=== PATIENT | female | born 1950 | race Caucasian/White ===

== ENCOUNTER → 2017-06-17 | Outpatient (CLI) | payer MEDICARE ==
--- NOTE | 2017-06-18 14:13 | MM ---
Reason for exam: screening (asymptomatic). Last mammogram was performed 1 year and 1 month ago. History: Patient is postmenopausal and had first child at age 35. Took estrogen for 6 months. Physical Findings: A clinical breast exam by your physician is recommended on an annual basis and results should be correlated with mammographic findings. MG 3D Screening Mammo W/Cad Bilateral CC and MLO view(s) were taken. Prior study comparison: May 08, 2016, bilateral MG screening mammo w CAD. August 04, 2014, mammogram, performed at [facility]. July 20, 2013, mammogram, performed at [facility]. The breast tissue is heterogeneously dense. This may lower the sensitivity of mammography. No suspicious abnormality. No significant changes when compared with prior studies. ASSESSMENT: Negative, BI-RAD 1 RECOMMENDATION: Routine screening mammogram of both breasts in 1 year.
== END | disposition home or self-care (01) ==
LOC: RADMAMWWP 08:27
PROVIDERS: ATTEND Obstetrics & Gynecology
DX: Z12.31 Encounter for screening mammogram for malignant neoplasm of breast (principal)
CPT/HCPCS: 77063; G0202

== ENCOUNTER → 2019-05-06 | Outpatient (CLI) | payer MEDICARE ==
[2019-05-06 15:01] LABS: INR 0.9 (<1.2); Prothrombin Time 9.7 sec (9.0-12.0)
== END | disposition home or self-care (01) ==
LOC: LABWHC1 13:40
PROVIDERS: ATTEND Orthopaedic Surgery Adult Reconstructive Orthopaedic Surgery
DX: Z01.812 Encounter for preprocedural laboratory examination (principal); M25.561 Pain in right knee; M17.11 Unilateral primary osteoarthritis, right knee
CPT/HCPCS: 36415; 85610; 87070

== ENCOUNTER → 2020-01-24 | Outpatient (CLI) | payer MEDICARE ==
--- NOTE | 2020-01-25 08:25 | MM ---
Reason for exam: screening (asymptomatic). Last mammogram was performed 1 year and 7 months ago. History: Patient is postmenopausal and had first child at age 35. Took estrogen for 6 months. Physical Findings: A clinical breast exam by your physician is recommended on an annual basis and results should be correlated with mammographic findings. MG 3D Screening Mammo W/Cad Bilateral CC and MLO view(s) were taken. Prior study comparison: June 25, 2018, bilateral MG 3d screening mammo w/cad. June 17, 2017, bilateral MG 3d screening mammo w/cad. The breast tissue is heterogeneously dense. This may lower the sensitivity of mammography. There is no discrete abnormality. No significant changes when compared with prior studies. ASSESSMENT: Negative, BI-RAD 1 RECOMMENDATION: Routine screening mammogram of both breasts in 1 year.
== END | disposition home or self-care (01) ==
LOC: RADMAMWWP 10:35
PROVIDERS: ATTEND Obstetrics & Gynecology
DX: Z12.31 Encounter for screening mammogram for malignant neoplasm of breast (principal)
CPT/HCPCS: 77063; 77067

== ENCOUNTER → 2020-03-01 | Outpatient (CLI) | payer MEDICARE ==
--- NOTE | 2020-03-01 16:35 | BD ---
EXAMINATION TYPE: Axial Bone Density DATE OF EXAM: 03/01/2020 COMPARISON: NONE CLINICAL HISTORY: 69 YR OLD FEMALE.....ICD-10 CODE: N95.1 POST MENOPAUSAL Height: 68 Weight: 237 FRAX RISK QUESTIONS: 3. Menopause before 45: AT 46 YRS OLD RISK FACTORS HISTORY OF: Surgery to RT HIP REPLACED JANUARY 2017 Postmenopausal woman: YES AT AGE 46 Take estrogen and/or progesterone medications: TOOK IN PAST FOR ONLY 6 MOS Hyperparathyroidism: NO Adrenal Insufficiency: NO MEDICATIONS: Thyroid Medications: YES, SYNTHROID, FOR ABOUT 40 YRS Additional Medications: LEXAPRO, METFORMIN, STATIN FOR CHOLESTEROL, VIT D AND CALCIUM Additional History: OSTEOARTHRITIS, RT KNEE REPLACEMENT 2018, DIABETIC CHOLESTEROL EXAM MEASUREMENTS: Bone mineral densitometry was performed using the [employer] System. Bone mineral density as measured about the Lumbar spine is: ----- L1-L4(G/cm2): 1.580 T Score Values are as follows: ----- L: 2.2 ----- L2: 2.0 ----- L3: 4.3 ----- L4: 4.2 ----- L1-L4: 3.3 Bone mineral density FIRST BONE DENSITY STUDY AT [facility] Bone mineral density about the L hip (g/cm2): 1.284 T Score values are as follows: -----L Neck: 1.3 -----L Total: 2.2 Bone mineral density FIRST BONE DENSITY STUDY AT [facility] FRAX%s: THERE IS A 5.2% CHANCE FOR A MAJOR OSTEOPOROTIC FX AND A 0.1% FOR HIP.....PROBABILITY FOR FX IN 10 YRS TIME IMPRESSION: Normal (Values between +1 and -1 indicate normal bone mass). Consider repeating this study in 5 year s or sooner if there is some new clinical indication. NOTE: T-SCORE=SD OF THE YOUNG ADULT MEAN.
== END | disposition home or self-care (01) ==
LOC: RADBDWWP 13:19
PROVIDERS: ATTEND Obstetrics & Gynecology
DX: N95.1 Menopausal and female climacteric states (principal)
CPT/HCPCS: 77080

== ENCOUNTER 2020-03-16 15:39 | Observation (INO) | payer MEDICARE ==
--- NOTE | 2020-03-16 16:16 | ED ---
SOB HPI - General Chief Complaint: Shortness of Breath Stated Complaint: SOB, poss blood clot Time Seen by Provider: 03/16/20 15:53 Source: patient, RN notes reviewed Mode of arrival: ambulatory Limitations: no limitations - History of Present Illness Initial Comments: 69-year-old female presents emergency Department chief complaint of exertional dyspnea. Patient states she woke up this morning felt extremely tired. No she states that she slept well with her CPAP. Patient states that she got up to walk up to her breakfast table which was a short distance and states she became very diaphoretic and felt winded. Patient states that she's had recurrent symptoms of this about the day. She has meant that she is a type II diabetic but sugar was 159 this morning. Patient states she only takes metformin. Patient denies fever or chills. Patient states she's had no prior cardiac disease she's never had an echo. Patient has had stresses the past which have been normal. She has no complaints of chest pain at this time. Patient has localized abdominal pain, leg pain, leg swelling patient called PCP who recommended her to come emergency Department to rule out PE. - Related Data Home Medications Medication Instructions Recorded Confirmed Atorvastatin Calcium [Lipitor] 20 mg PO HS 03/16/20 03/16/20 Escitalopram [Lexapro] 10 mg PO DAILY 03/16/20 03/16/20 Levothyroxine Sodium 100 mcg PO SUTUTHSA 03/16/20 03/16/20 Levothyroxine Sodium 125 mcg PO MOWEFR 03/16/20 03/16/20 metFORMIN HCL [metFORMIN HCL ER] 1,000 mg PO W/SUPPER 03/16/20 03/16/20 Allergies Allergy/AdvReac Type Severity Reaction Status Date / Time ciprofloxacin [From Cipro] Allergy Unknown Verified 03/16/20 17:40 mefenamic acid [From Ponstel] Allergy Unknown Verified 03/16/20 17:40 Sulfa (Sulfonamide Allergy Rash/Hives Verified 03/16/20 17:40 Antibiotics) Review of Systems ROS Statement: Those systems with pertinent positive or pertinent negative responses have been documented in the HPI. ROS Other: All systems not noted in ROS Statement are negative. Past Medical History Past Medical History: Diabetes Mellitus, Hyperlipidemia, Thyroid Disorder History of Any Multi-Drug Resistant Organisms: None Reported Past Surgical History: Joint Replacement, Uterine Ablation Additional Past Surgical History / Comment(s): eyelid Past Psychological History: Anxiety Smoking Status: Former smoker Past Alcohol Use History: Daily Past Drug Use History: None Reported General Exam Limitations: no limitations General appearance: alert, in no apparent distress Head exam: Present: atraumatic, normocephalic, normal inspection Eye exam: Present: normal appearance, PERRL, EOMI. Absent: scleral icterus, conjunctival injection, periorbital swelling ENT exam: Present: normal exam, normal oropharynx, mucous membranes moist Neck exam: Present: normal inspection. Absent: tenderness, meningismus, lymphadenopathy Respiratory exam: Present: normal lung sounds bilaterally. Absent: respiratory distress, wheezes, rales, rhonchi, stridor Cardiovascular Exam: Present: regular rate, normal rhythm, normal heart sounds. Absent: systolic murmur, diastolic murmur, rubs, gallop, clicks Extremities exam: Present: other. Absent: pedal edema, calf tenderness Neurological exam: Present: alert, oriented X3, CN II-XII intact Skin exam: Present: warm, dry, intact, normal color. Absent: rash Course Vital Signs 03/16/20 03/16/20 03/16/20 15:43 16:25 17:47 Temperature 98 F Pulse Rate 86 80 Respiratory 18 18 18 Rate Blood Pressure 127/82 124/78 O2 Sat by Pulse 95 100 Oximetry 03/16/20 18:27 Temperature 97.8 F Pulse Rate 65 Respiratory 18 Rate Blood Pressure 131/81 O2 Sat by Pulse 98 Oximetry Medical Decision Making - Medical Decision Making 69-year-old female presented for exertional dyspnea. Patient's had recurrent symptoms exertional dyspnea, diaphoresis and near syncope. Patient d-dimer is mildly elevated CT is negative. Patient will be admitted for echocardiogram, cardiology evaluation - Lab Data Result diagrams: 03/16/20 16:06 03/16/20 16:06 Lab Results 03/16/20 03/16/20 03/16/20 Range/Units 16:06 16:06 16:06 WBC 4.0 (3.8-10.6) k/uL RBC 4.11 (3.80-5.40) m/uL Hgb 13.0 (11.4-16.0) gm/dL Hct 37.8 (34.0-46.0) % MCV 91.9 (80.0-100.0) fL MCH 31.7 (25.0-35.0) pg MCHC 34.5 (31.0-37.0) g/dL RDW 13.7 (11.5-15.5) % Plt Count 205 (150-450) k/uL Neutrophils % 60 % Lymphocytes % 28 % Monocytes % 6 % Eosinophils % 3 % Basophils % 1 % Neutrophils # 2.4 (1.3-7.7) k/uL Lymphocytes # 1.1 (1.0-4.8) k/uL Monocytes # 0.3 (0-1.0) k/uL Eosinophils # 0.1 (0-0.7) k/uL Basophils # 0.0 (0-0.2) k/uL PT 9.6 (9.0-12.0) sec INR 0.9 (<1.2) APTT 22.7 (22.0-30.0) sec D-Dimer 0.65 H (<0.60) mg/L FEU Sodium 138 (137-145) mmol/L Potassium 3.7 (3.5-5.1) mmol/L Chloride 107 (98-107) mmol/L Carbon Dioxide 24 (22-30) mmol/L Anion Gap 7 mmol/L BUN 22 H (7-17) mg/dL Creatinine 0.60 (0.52-1.04) mg/dL Est GFR (CKD-EPI)AfAm >90 (>60 ml/min/1.73 sqM) Est GFR (CKD-EPI)NonAf >90 (>60 ml/min/1.73 sqM) Glucose 190 H (74-99) mg/dL Plasma Lactic Acid Jeffery (0.7-2.0) mmol/L Calcium 9.2 (8.4-10.2) mg/dL Magnesium 1.9 (1.6-2.3) mg/dL Total Bilirubin 0.8 (0.2-1.3) mg/dL AST 29 (14-36) U/L ALT 22 (4-34) U/L Alkaline Phosphatase 96 (38-126) U/L Troponin I (0.000-0.034) ng/mL Total Protein 6.7 (6.3-8.2) g/dL Albumin 4.2 (3.5-5.0) g/dL 03/16/20 03/16/20 Range/Units 16:06 16:06 WBC (3.8-10.6) k/uL RBC (3.80-5.40) m/uL Hgb (11.4-16.0) gm/dL Hct (34.0-46.0) % MCV (80.0-100.0) fL MCH (25.0-35.0) pg MCHC (31.0-37.0) g/dL RDW (11.5-15.5) % Plt Count (150-450) k/uL Neutrophils % % Lymphocytes % % Monocytes % % Eosinophils % % Basophils % % Neutrophils # (1.3-7.7) k/uL Lymphocytes # (1.0-4.8) k/uL Monocytes # (0-1.0) k/uL Eosinophils # (0-0.7) k/uL Basophils # (0-0.2) k/uL PT (9.0-12.0) sec INR (<1.2) APTT (22.0-30.0) sec D-Dimer (<0.60) mg/L FEU Sodium (137-145) mmol/L Potassium (3.5-5.1) mmol/L Chloride (98-107) mmol/L Carbon Dioxide (22-30) mmol/L Anion Gap mmol/L BUN (7-17) mg/dL Creatinine (0.52-1.04) mg/dL Est GFR (CKD-EPI)AfAm (>60 ml/min/1.73 sqM) Est GFR (CKD-EPI)NonAf (>60 ml/min/1.73 sqM) Glucose (74-99) mg/dL Plasma Lactic Acid Jeffery 1.6 (0.7-2.0) mmol/L Calcium (8.4-10.2) mg/dL Magnesium (1.6-2.3) mg/dL Total Bilirubin (0.2-1.3) mg/dL AST (14-36) U/L ALT (4-34) U/L Alkaline Phosphatase (38-126) U/L Troponin I <0.012 (0.000-0.034) ng/mL Total Protein (6.3-8.2) g/dL Albumin (3.5-5.0) g/dL - EKG Data -: EKG Interpreted by Me EKG Comments: EKG performed at 16:09 normal sinus rhythm rate of 84 UT 170 QRS 94 QT/QTC 418/493 Disposition Clinical Impression: Exertional dyspnea, Near syncope Disposition: ADMITTED IP TO THIS HOSP Condition: Fair Referrals: Prakash Batista MD [Primary Care Provider] - 1-2 days
[2020-03-16 16:30] LABS: Basophils % (A) 1 %; Eosinophils # (A) 0.1 k/uL (0-0.7); Eosinophils % (A) 3 %; HCT 37.8 % (34.0-46.0); Lymphocytes # (A) 1.1 k/uL (1.0-4.8); Lymphocytes % (A) 28 %; MCH 31.7 pg (25.0-35.0); MCHC 34.5 g/dL (31.0-37.0); MCV 91.9 fL (80.0-100.0); Mean Platelet Volume 7.2; Monocytes # (A) 0.3 k/uL (0-1.0); Monocytes % (A) 6 %; Neutrophils # (A) 2.4 k/uL (1.3-7.7); Neutrophils % (A) 60 %; Platelet Count 205 k/uL (150-450); RBC 4.11 m/uL (3.80-5.40); RDW 13.7 % (11.5-15.5)
[2020-03-16 16:39] LABS: ALT 22 U/L (4-34); AST 29 U/L (14-36); African American GFR (CKD) >90 (>60 ml/min/1.73 sqM); Albumin 4.2 g/dL (3.5-5.0); Alkaline Phosphatase 96 U/L (38-126); Anion Gap 7 mmol/L; Blood Urea Nitrogen 22 mg/dL (7-17); Calcium 9.2 mg/dL (8.4-10.2); Carbon Dioxide 24 mmol/L (22-30); Chloride 107 mmol/L (98-107); Glucose 190 mg/dL (74-99); Magnesium 1.9 mg/dL (1.6-2.3); Non-African American GFR(CKD) >90 (>60 ml/min/1.73 sqM); Potassium 3.7 mmol/L (3.5-5.1); Sodium 138 mmol/L (137-145); Total Bilirubin 0.8 mg/dL (0.2-1.3); Total Protein 6.7 g/dL (6.3-8.2)
--- NOTE | 2020-03-16 16:41 | XR ---
EXAMINATION TYPE: XR chest 2V DATE OF EXAM: 03/16/2020 COMPARISON: NONE HISTORY: Short of breath TECHNIQUE: 2 views FINDINGS: Heart is normal. Lungs are clear. Costophrenic angles are clear. There are no hilar masses. There are chest leads. Bony thorax is intact. IMPRESSION: No active cardiopulmonary disease.
[2020-03-16 16:47] LABS: INR 0.9 (<1.2); Partial Thromboplastin Time 22.7 sec (22.0-30.0); Prothrombin Time 9.6 sec (9.0-12.0)
[2020-03-16 17:12] LABS: D-Dimer 0.65 mg/L FEU (<0.60)
--- NOTE | 2020-03-16 18:39 | CT ---
EXAMINATION TYPE: CT chest angio for PE DATE OF EXAM: 03/16/2020 COMPARISON: None HISTORY: Dyspnea on exertion. CT DLP: 574.4 mGycm Automated exposure control for dose reduction was used. CONTRAST: Performed with IV Contrast, patient injected with 81ml mL of Isovue 370. There are 3-D post processed images. The lungs are clear of consolidation. There is no evidence of a pulmonary mass. There is no pleural e ffusion. There is no pericardial effusion. Thoracic aorta is intact. There is no aneurysm or dissection. There are no hilar masses. There is nor mal contrast opacification of the pulmonary arteries. There are no filling defects. I see no bony enmanuel tructive process. There is some spurring in the thoracic spine. Sternum is intact. There is small hia cristina hernia. IMPRESSION: No evidence of pulmonary embolism.
[2020-03-16] MEDS ORDERED: NALOXONE 0.4 MG/ML 1 ML VIAL IV PRN (18:49)
[2020-03-16] MEDS ORDERED: ONDANSETRON 4 MG/2 ML VIAL IVP PRN (18:49)
[2020-03-16] MEDS ORDERED: ACETAMINOPHEN TAB 325 MG TAB PO PRN (18:49)
[2020-03-16] MEDS ORDERED: TEMAZEPAM 15 MG CAP PO PRN (18:49)
[2020-03-16] MEDS ORDERED: ATORVASTATIN 20 MG TAB PO SCH (21:00)
[2020-03-17] MEDS ORDERED: LEVOTHYROXINE 125 MCG TAB PO SCH (06:30)
[2020-03-17 06:40] LABS: Glucose,Whole Blood 141 mg/dL (75-99)
[2020-03-17] MEDS ORDERED: ESCITALOPRAM 10 MG TAB PO SCH (09:00)
[2020-03-17 09:43] VITALS: RESP 16
[2020-03-17] MEDS ORDERED: REGADENOSON 0.4 MG/5 ML SYRINGE IV ONE (10:38)
[2020-03-17] MEDS ORDERED: AMINOPHYLLINE 500 MG/20 ML VIAL IV PRN (10:38)
[2020-03-17] MEDS ORDERED: CAFFEINE CITRATE 60 MG/3 ML VIAL IV PRN (10:38)
--- NOTE | 2020-03-17 10:38 | P.CRDCN ---
History of Present Illness Consult date: 03/17/20 Chief complaint: Shortness of breath History of present illness: This is a very pleasant 69-year-old female patient with diabetes and hypertensio n and dyslipidemia presented to the hospital complaining of shortness of breath. She was in her usual state of health yesterday when she woke up in the morning complaining of shortness of breath it was associated with sweating but no symptoms of chest pain or discomfort or dizziness or lightheadedness or syncope. She decided to come to the emergency department. She underwent a workup including d-dimer and that came in to be abnormal but subsequently CTA of the chest showed no PE. The EKG showed sinus rhythm without significant ST or T- wave abnormalities but nonspecific changes. 3 sets of cardiac enzymes came in to be unremarkable. The patient does have diabetes and hypertension and dys lipidemia as risk factors. She does not smoke. No significant or immediate family member was coronary artery disease. She is quite concerned about severe underlying coronary artery disease and also I am concerned about severe CAD giving her multiple risk factors and the presentation was shortness of breath which could be angina equivalent. Having said that I'm going to schedule the patient to undergo a stress test to rule out severe underlying coronary artery disease and also an echocardiogram was Doppler to establish LV function. Further recommendation to follow that Past Medical History Past Medical History: Diabetes Mellitus, Hyperlipidemia, Thyroid Disorder History of Any Multi-Drug Resistant Organisms: None Reported Past Surgical History: Joint Replacement, Uterine Ablation Additional Past Surgical History / Comment(s): eyelid Past Anesthesia/Blood Transfusion Reactions: No Reported Reaction Past Psychological History: Anxiety Smoking Status: Former smoker Past Alcohol Use History: Daily Past Drug Use History: None Reported Medications and Allergies Home Medications Medication Instructions Recorded Confirmed Type Atorvastatin Calcium [Lipitor] 20 mg PO HS 03/16/20 03/16/20 History Escitalopram [Lexapro] 10 mg PO DAILY 03/16/20 03/16/20 History Levothyroxine Sodium 100 mcg PO SUTUTHSA 03/16/20 03/16/20 History Levothyroxine Sodium 125 mcg PO MOWEFR 03/16/20 03/16/20 History metFORMIN HCL [metFORMIN HCL ER] 1,000 mg PO W/SUPPER 03/16/20 03/16/20 History Allergies Allergy/AdvReac Type Severity Reaction Status Date / Time ciprofloxacin [From Cipro] Allergy Unknown Verified 03/16/20 17:40 mefenamic acid [From Ponstel] Allergy Unknown Verified 03/16/20 17:40 Sulfa (Sulfonamide Allergy Rash/Hives Verified 03/16/20 17:40 Antibiotics) Physical Exam Vitals: Vital Signs Temp Pulse Pulse Resp BP BP Pulse Ox 03/17/20 09:00 98 F 78 16 133/84 96 03/17/20 03:00 97.7 F 63 130/80 96 03/16/20 21:39 97.8 F 72 138/78 97 03/16/20 20:18 97.4 F L 69 18 145/92 100 03/16/20 18:27 97.8 F 65 18 131/81 98 03/16/20 17:47 80 18 124/78 100 03/16/20 16:25 18 03/16/20 15:43 98 F 86 18 127/82 95 Intake and Output 03/16/20 03/17/20 03/17/20 22:59 06:59 14:59 Intake Total 300 150 Balance 300 150 Intake: Oral 300 150 Other: Voiding Method Toilet Toilet Weight 107.048 kg - Constitutional General appearance: no acute distress - Respiratory Respiratory: bilateral: CTA - Cardiovascular Rhythm: regular Heart sounds: normal: S1, S2 Results 03/16/20 16:06 03/16/20 16:06 Cardiac Enzymes 03/16/20 03/16/20 03/17/20 Range/Units 16:06 16:06 09:03 AST 29 (14-36) U/L Troponin I <0.012 <0.012 (0.000-0.034) ng/mL Coagulation 03/16/20 Range/Units 16:06 PT 9.6 (9.0-12.0) sec APTT 22.7 (22.0-30.0) sec CBC 03/16/20 Range/Units 16:06 WBC 4.0 (3.8-10.6) k/uL RBC 4.11 (3.80-5.40) m/uL Hgb 13.0 (11.4-16.0) gm/dL Hct 37.8 (34.0-46.0) % Plt Count 205 (150-450) k/uL Comprehensive Metabolic Panel 03/16/20 Range/Units 16:06 Sodium 138 (137-145) mmol/L Potassium 3.7 (3.5-5.1) mmol/L Chloride 107 (98-107) mmol/L Carbon Dioxide 24 (22-30) mmol/L BUN 22 H (7-17) mg/dL Creatinine 0.60 (0.52-1.04) mg/dL Glucose 190 H (74-99) mg/dL Calcium 9.2 (8.4-10.2) mg/dL AST 29 (14-36) U/L ALT 22 (4-34) U/L Alkaline Phosphatase 96 (38-126) U/L Total Protein 6.7 (6.3-8.2) g/dL Albumin 4.2 (3.5-5.0) g/dL Current Medications Generic Name Dose Route Start Last Admin Trade Name Freq PRN Reason Stop Dose Admin Acetaminophen 650 mg 03/16/20 18:49 Tylenol Tab PO Q6HR PRN Mild Pain or Fever > 100.5 Atorvastatin Calcium 20 mg 03/16/20 21:00 03/16/20 22:12 Lipitor PO 20 mg HS JAMES Administration Escitalopram Oxalate 10 mg 03/17/20 09:00 Lexapro PO DAILY JAMES Levothyroxine Sodium 125 mcg 03/17/20 06:30 03/17/20 09:42 Synthroid PO 125 mcg MOWEFR JAMES Administration Levothyroxine Sodium 100 mcg 03/18/20 06:30 Synthroid PO SUTUTHSA JAMES Naloxone HCl 0.2 mg 03/16/20 18:49 Narcan IV Q2M PRN Opioid Reversal Ondansetron HCl 4 mg 03/16/20 18:49 Zofran IVP Q8HR PRN Nausea And Vomiting Temazepam 15 mg 03/16/20 18:49 Restoril PO HS PRN Insomnia Intake and Output 03/16/20 03/17/20 03/17/20 22:59 06:59 14:59 Intake Total 300 150 Balance 300 150 Intake: Oral 300 150 Other: Voiding Method Toilet Toilet Weight 107.048 kg 03/16/20 16:06 03/16/20 16:06 Assessment and Plan Assessment: Assessment #1 shortness of breath #2 diabetes #3 hypertension #4 dyslipidemia Plan #1 acute coronary event was ruled out #2 obtain a stress test to rule out severe CAD #3 follow-up with the patient
--- NOTE | 2020-03-17 14:08 | P.HPIM ---
History of Present Illness H&P Date: 03/17/20 Chief Complaint: Exertional Dyspnea 69-year-old female presented to [facility] emergency department with exertional dyspnea. Patient stated that the night before she had a very well nighttime sleep with her CPAP. She had no issues. However, upon awakening this morning she felt extremely fatigued. Patient was very short of breath, even when just walking to her kitchen table. As a result, patient called her PCP and was advised to go to the ER. Patient didn't go immediately to the ER and instead took a two hour nap. Upon awakening patient was still short of breath. Patient finally made it to the emergency department at [facility]. Patient is a type II oxy-zusqbwn-nxiqmtnny diabetic. Blood sugar this morning was 159 when symptoms appeared. ER workup revealed a positive d-dimer of 0.65. CTA was negative for PE. Cardiac enzymes 2 were negative. Patient is currently sitting up in bed denies chest pain, shortness of breath, nausea, vomiting, fevers, or chills. Patient is frustrated because she is hungry. Cardiology ordered an echo and stress test. Review of Systems A 12 point review of systems was assessed patient was only positive for those pertinent in HPI. Past Medical History Past Medical History: Diabetes Mellitus, Hyperlipidemia, Thyroid Disorder History of Any Multi-Drug Resistant Organisms: None Reported Past Surgical History: Joint Replacement, Uterine Ablation Additional Past Surgical History / Comment(s): eyelid Past Anesthesia/Blood Transfusion Reactions: No Reported Reaction Past Psychological History: Anxiety Smoking Status: Former smoker Past Alcohol Use History: Daily Past Drug Use History: None Reported Medications and Allergies Home Medications Medication Instructions Recorded Confirmed Type Atorvastatin Calcium [Lipitor] 20 mg PO HS 03/16/20 03/16/20 History Escitalopram [Lexapro] 10 mg PO DAILY 03/16/20 03/16/20 History Levothyroxine Sodium 100 mcg PO SUTUTHSA 03/16/20 03/16/20 History Levothyroxine Sodium 125 mcg PO MOWEFR 03/16/20 03/16/20 History metFORMIN HCL [metFORMIN HCL ER] 1,000 mg PO W/SUPPER 03/16/20 03/16/20 History Allergies Allergy/AdvReac Type Severity Reaction Status Date / Time ciprofloxacin [From Cipro] Allergy Unknown Verified 03/16/20 17:40 mefenamic acid [From Ponstel] Allergy Unknown Verified 03/16/20 17:40 Sulfa (Sulfonamide Allergy Rash/Hives Verified 03/16/20 17:40 Antibiotics) Physical Exam Osteopathic Statement: *. No significant issues noted on an osteopathic structural exam other than those noted in the History and Physical/Consult. Vitals: Vital Signs Temp Pulse Pulse Resp BP BP Pulse Ox 03/17/20 09:00 98 F 78 16 133/84 96 03/17/20 03:00 97.7 F 63 130/80 96 03/16/20 21:39 97.8 F 72 138/78 97 03/16/20 20:18 97.4 F L 69 18 145/92 100 03/16/20 18:27 97.8 F 65 18 131/81 98 03/16/20 17:47 80 18 124/78 100 03/16/20 16:25 18 03/16/20 15:43 98 F 86 18 127/82 95 Intake and Output 03/16/20 03/17/20 03/17/20 22:59 06:59 14:59 Intake Total 300 150 Balance 300 150 Intake: Oral 300 150 Other: Voiding Method Toilet Toilet # Voids 1 Weight 107.048 kg General: [non toxic], [no distress], [appears at stated age] Derm: [warm], [dry] Head: [atraumatic], [normocephalic], [symmetric] Eyes: [EOMI], [no lid lag], [anicteric sclera] Mouth: [no lip lesion], [mucus membranes moist] Cardiovascular: [S1S2 reg], [no murmur], [positive posterior tibial pulse bilateral], Lungs: [CTA bilateral], [no rhonchi, no rales] , [no accessory muscle use] Abdominal: [soft], [ nontender to palpation], [no guarding], [no appreciable organomegaly] Ext: [no gross muscle atrophy], [no edema], [no contractures] Neuro: [ CN II-XI grossly intact], [no focal neuro deficits] Psych: [Alert], [oriented], [appropriate affect] Results CBC & Chem 7: 03/16/20 16:06 03/16/20 16:06 Labs: Abnormal Lab Results - Last 24 Hours (Table) 03/16/20 03/16/20 03/17/20 Range/Units 16:06 16:06 06:38 D-Dimer 0.65 H (<0.60) mg/L FEU BUN 22 H (7-17) mg/dL Glucose 190 H (74-99) mg/dL POC Glucose (mg/dL) 141 H (75-99) mg/dL Thrombosis Risk Factor Assmnt - Choose All That Apply Each Risk Factor Represents 2 Points: Age 61-74 years Thrombosis Risk Factor Assessment Total Risk Factor Score: 2 Thrombosis Risk Factor Assessment Level: Low Risk Assessment and Plan Assessment: 1. Exertional dyspnea ACS was ruled out Stress test pending to rule out CAD Echocardiogram pending Cardiology recommendations appreciated 2. Oir-[id number] diabetes mellitus Add aspirin 81 mg daily Continue statin and metformin 3. Hyperlipidemia Aspirin and statin 4. Hypothyroid Continue Levothyroxine 5. Anxiety Continue Lexapro Greater than 30 minutes spent coordinating care with greater than 50% f tabatha-to-face time counseling patient Time with Patient: Greater than 30
--- NOTE | 2020-03-17 16:21 | NM ---
EXAMINATION TYPE: NM stress lexiscan cardiolite DATE OF EXAM: 03/17/2020 COMPARISON: NONE HISTORY: Chest pain TECHNIQUE: After the intravenous administration of 10.6 mCi Tc 99m Sestamibi - Cardiolite resting SP ECT images acquired 45 minutes post injection. The patient received 0.4mg Lexiscan, 25.2 mCi Tc 99m Sestamibi - Stress images obtained [address] injection FINDINGS: Review of stress and rest SPECT images demonstrates no distinct perfusion abnormality. Gated analysi s shows normal wall motion with an estimated left ventricular ejection fraction of 59 %. TID 1.02 IMPRESSION: 1. No scintigraphic evidence for reversible ischemia. 2. Ejection fraction 59%.
[2020-03-17 16:51] VITALS: BP 140/85; PULSE 74; TEMP 97.9
[2020-03-17] MEDS ORDERED: SODIUM CHLORIDE 0.9% 1,000 ML IV SCH (16:56)
--- NOTE | 2020-03-17 18:35 | ECHOF ---
Referral Reason:Exertional dyspnea MEASUREMENTS -------- HEIGHT: 175.3 cm WEIGHT: 107.0 kg BP: 130/80 RVIDd: 3.3 cm (< 3.3) IVSd: 1.1 cm (0.6 - 1.1) LVIDd: 5.1 cm (3.9 - 5.3) LVPWd: 1.4 cm (0.6 - 1.1) IVSs: 1.4 cm LVIDs: 3.8 cm LVPWs: 2.0 cm LAESV Index (A-L): 31.21 ml/m Ao Diam: 2.5 cm (2.0 - 3.7) AV Cusp: 2.0 cm (1.5 - 2.6) MV EXCURSION: 17.874 mm (> 18.000) MV EF SLOPE: 76 mm/s (70 - 150) EPSS: 1.1 cm MV E Jimy: 0.49 m/s MV DecT: 229 ms MV A Jimy: 0.73 m/s MV E/A Ratio: 0.67 RAP: 5.00 mmHg RVSP: 25.76 mmHg FINDINGS -------- Sinus rhythm. This was a technically difficult study with suboptimal apical views. The left ventricular size is normal. There is mild concentric left ventricular hypertrophy. Overa ll left ventricular systolic function is mildly impaired with, an EF between 45 - 50 %. Septal Hypo kinesis The right ventricle is mildly enlarged. LA is midly dilated 29-33ml/m2. The right atrium is mildly enlarged. 5.0mg of Lumason was utilized for enhancement of images Interatrial and interventricular septum intact. There is no evidence of aortic regurgitation. There is no evidence of aortic stenosis. Mild mitral regurgitation is present. Mild tricuspid regurgitation present. There is no evidence of pulmonary hypertension. The right v entricular systolic pressure, as measured by Doppler, is 25.76mmHg. There is no pulmonic regurgitation present. The aortic root size is normal. IVC Not well visulized. There is no pericardial effusion. CONCLUSIONS -------- 1. The left ventricular size is normal. 2. There is mild concentric left ventricular hypertrophy. 3. Overall left ventricular systolic function is mildly impaired with, an EF between 45 - 50 %. 4. Septal Hypokinesis 5. The right ventricle is mildly enlarged. 6. LA is midly dilated 29-33ml/m2. 7. The right atrium is mildly enlarged. 8. Mild mitral regurgitation is present. 9. Mild tricuspid regurgitation present. BLACK TOP ROLLER: Amanda Le RDCS
[2020-03-18] MEDS ORDERED: LEVOTHYROXINE 100 MCG TAB PO SCH (06:30)
--- NOTE | 2020-03-18 07:12 | EST ---
EXERCISE STRESS AGE 69 SEX Female HT 69 WT 236 PROTOCOL Lexiscan Cardiolite STAGE DURATION OF EXERCISE HEART RATE REST 66 BLOOD PRESSURE REST 141/55 MAXIMUM HEART RATE ACHIEVED 99 MAXIMUM BLOOD PRESSURE 163/63 85% MPHR 129 100% MPHR 152 METs INDICATIONS Chest pain. CLINICAL INFORMATION STRESS DATA: Heart rate 66, pressure is 141/55 mmHg. Baseline EKG showed sinus mechanism Then 0.4 mg of Lexiscan given. Max heart rate was 99 beats per minute and maximum pressure was 163/63 mmHg. Clinically the patient did not have any symptoms and the EKG did not show any significant ST or T-wave abnormalities concerning for ischemia. CONCLUSION: 1. Nondiagnostic electrocardiogram stress testing in response to Lexiscan. 2. Please follow up on the Cardiolite portion on a separate report from Radiology Department. MMODL / IJN: [id number] /
[2020-03-18] MEDS ORDERED: ASPIRIN 81 MG PO SCH (09:00)
== END 2020-03-17 17:25 | disposition home or self-care (01) ==
LOC: EC 15:39 → 3NCARDOBS 19:49
PROVIDERS: ADMIT Family Medicine; ATTEND Family Medicine
DX: R06.09 Other forms of dyspnea (principal); R53.83 Other fatigue; R55 Syncope and collapse; R61 Generalized hyperhidrosis; R06.02 Shortness of breath; F41.9 Anxiety disorder, unspecified; E11.9 Type 2 diabetes mellitus without complications; R10.9 Unspecified abdominal pain; E03.9 Hypothyroidism, unspecified; E78.5 Hyperlipidemia, unspecified; M79.606 Pain in leg, unspecified; M79.89 Other specified soft tissue disorders; R79.9 Abnormal finding of blood chemistry, unspecified; I10 Essential (primary) hypertension; I08.1 Rheumatic disorders of both mitral and tricuspid valves; Z99.89 Dependence on other enabling machines and devices; Z79.84 Long term (current) use of oral hypoglycemic drugs; Z79.899 Other long term (current) drug therapy; Z79.890 Hormone replacement therapy; Z88.1 Allergy status to other antibiotic agents; Z88.6 Allergy status to analgesic agent; Z88.2 Allergy status to sulfonamides; Z96.60 Presence of unspecified orthopedic joint implant; Z98.890 Other specified postprocedural states; Z87.891 Personal history of nicotine dependence
CPT/HCPCS: 99285; 36415; 93005; 93017; 85379; 80053; 83605; 83735; 84484 ×2; 85025; 85610; 85730; 71046; 71275; 78452; G0378 ×2; C8929; A9500; J2785; Q9950; Q9967; 93306

== ENCOUNTER → 2021-06-12 | Outpatient (CLI) | payer MEDICARE ==
--- NOTE | 2021-06-14 13:47 | MM ---
Reason for exam: screening (asymptomatic). Last mammogram was performed 1 year and 5 months ago. History: Patient is postmenopausal and had first child at age 35. Took estrogen for 6 months. Physical Findings: A clinical breast exam by your physician is recommended on an annual basis and results should be correlated with mammographic findings. MG 3D Screening Mammo W/Cad Bilateral CC and MLO view(s) were taken. Prior study comparison: January 24, 2020, bilateral MG 3d screening mammo w/cad. June 25, 2018, bilateral MG 3d screening mammo w/cad. The breast tissue is heterogeneously dense. This may lower the sensitivity of mammography. Unchanged areas of asymmetric density. No significant changes when compared with prior studies. ASSESSMENT: Benign, BI-RAD 2 RECOMMENDATION: Routine screening mammogram of both breasts in 1 year.
== END | disposition home or self-care (01) ==
LOC: RADMAMWWP 13:14
PROVIDERS: ATTEND Obstetrics & Gynecology
DX: Z12.31 Encounter for screening mammogram for malignant neoplasm of breast (principal); Z78.0 Asymptomatic menopausal state
CPT/HCPCS: 77063; 77067

== ENCOUNTER 2022-03-03 10:43 | Emergency (ER) | payer MEDICARE ==
[2022-03-03 10:51] VITALS: RESP 16; TEMP 98
[2022-03-03] MEDS ORDERED: HYDROcodone/APAP 10-325MG 1 EACH TAB PO ONE (11:17)
[2022-03-03] MEDS ORDERED: LIDOCAINE 5% PATCH TOPICAL SCH (11:30)
--- NOTE | 2022-03-03 11:54 | CT ---
EXAMINATION TYPE: CT brain cspine wo con CT DLP: 1709.8 mGycm, Automated exposure control for dose reduction was used. DATE OF EXAM: 03/03/2022 11:37 AM COMPARISON: None CLINICAL INDICATION:Female, 71 years old with history of fall on thinners; Fall on thinners, Lacerati on occipital lobe TECHNIQUE: Brain: Multiple axial CT images of the brain were obtained without IV contrast. Cspine: Axial CT images from the skull base to the inferior aspect of T2 we obtained without intraven ous contrast. Coronal and sagittal reformatted images were also reviewed. FINDINGS: Brain: Extra-axial spaces: No abnormal extra-axial fluid collections. Ventricular system: Within normal limits Cerebral parenchyma: No acute intraparenchymal hemorrhage or mass effect. The myles-white junction is well differentiated. Scattered hypoattenuating areas are seen within the white matter. Cerebellum: Unremarkable. Mass effect: No evidence of midline shift. Intracranial vasculature: unremarkable Soft tissues: Posterior scalp hematoma measuring 4.4 x 1.1 x 5.6 cm Calvarium/osseous structures: No depressed skull fracture. Paranasal sinuses and mastoid air cells: Clear. Visualized orbits: Bilateral aphakia Cervical spine: Fracture: None. Osseous structures: Multilevel degenerative disc disease changes with endplate spurring and disc oste ophyte complex's. Fusion of the posterior arch of C1.1 Vertebral alignment: Within normal limits. Spinal canal/Neural Foramina: No evidence of significant spinal canal narrowing. No evidence for sign ificant neural foraminal stenosis. Neck soft tissues: Prevertebral soft tissues are within normal limits. Other: The airway is patent. The lung apices are clear. Calcification of the nuchal ligament. IMPRESSION: 1. No acute intracranial process. 2. Scalp hematoma. 3. No evidence of cervical spine fracture. 4. Mild multilevel degenerative disc disease.
--- NOTE | 2022-03-03 11:55 | XR ---
EXAMINATION TYPE: XR lumbosacral spine min 4V DATE OF EXAM: 03/03/2022 11:41 AM INDICATION: Patient age:Female; 71 years old; Reason for study: Fall COMPARISON: None TECHNIQUE: Frontal, lateral , bilateral oblique and coned in L5-S1 lateral views of the spine. FINDINGS: No evidence of any acute osseous pathology. No evidence of loss of vertebral body height i s seen. There is normal alignment of the lumbar vertebral bodies. Multilevel disc degeneration change s with endplate spurring and facet joint arthropathy. IMPRESSION: 1. No acute process. 2. Mild to moderate multilevel disc degeneration changes
--- NOTE | 2022-03-03 11:57 | XR ---
EXAMINATION TYPE: XR Hip LT and AP Pelvis DATE OF EXAM: 03/03/2022 11:41 AM INDICATION: Patient age:Female; 71 years old; Reason for study: fall; PHH. COMPARISON: None. TECHNIQUE: The left hip was examined in the frontal and lateral projections and a AP pelvis. FINDINGS: Total right arthroplasty with hardware intact and in appropriate position. acetabular osteo phyte formation of the left hip. Mild joint space narrowing. No evidence for acute process, joint dis location or significant soft tissue swelling. IMPRESSION: 1. No acute process. 2. Total right arthroplasty with hardware intact and appropriate position. 3. Moderate left hip osteoporosis.
[2022-03-03] MEDS ORDERED: ACET/COD 300 MG/30 MG STARTER PACK 6 TAB BTL PO STA (11:58)
--- NOTE | 2022-03-03 12:02 | ED ---
Fall HPI - General Chief Complaint: Fall Stated Complaint: fell and hit head Time Seen by Provider: 03/03/22 11:00 Source: patient Mode of arrival: wheelchair - History of Present Illness Initial Comments: Patient is a 71-year-old female who presents to the emergency department for evaluation of fall. Patient states she was walking behind her when she tripped on his feet and fell backwards onto her left hip and hit her head on the cement. Patient did not lose consciousness. Patient is on Eliquis. Was able to ambulate after the fall. Patient states she has a cough and bump on her head. She denies double vision, blurry vision, dizziness, lightheadedness, headache, nausea, and vomiting. Endorses left hip and lower back pain. Denies leg weakness. Denies numbness and tingling in the groin/buttock region. Denies bowel or bladder incontinence and retention. - Related Data Home Medications Medication Instructions Recorded Confirmed Atorvastatin Calcium [Lipitor] 20 mg PO HS 03/16/20 03/16/20 Escitalopram [Lexapro] 10 mg PO DAILY 03/16/20 03/16/20 Levothyroxine Sodium 100 mcg PO SUTUTHSA 03/16/20 03/16/20 Levothyroxine Sodium 125 mcg PO MOWEFR 03/16/20 03/16/20 metFORMIN HCL [metFORMIN HCL ER] 1,000 mg PO W/SUPPER 03/16/20 03/16/20 Previous Rx's Medication Instructions Recorded Acetaminophen Tab [Tylenol] 650 mg PO Q6HR PRN tab 03/17/20 Aspirin 81 mg PO DAILY chew 03/17/20 Lidocaine 5% Patch [Lidoderm 5% 1 patch TOPICAL DAILY #7 patch 03/03/22 Patch] Allergies Allergy/AdvReac Type Severity Reaction Status Date / Time ciprofloxacin [From Cipro] Allergy Unknown Verified 03/03/22 10:51 mefenamic acid [From Ponstel] Allergy Unknown Verified 03/03/22 10:51 Sulfa (Sulfonamide Allergy Rash/Hives Verified 03/03/22 10:51 Antibiotics) Review of Systems ROS Statement: Those systems with pertinent positive or pertinent negative responses have been documented in the HPI. ROS Other: All systems not noted in ROS Statement are negative. Past Medical History Past Medical History: Diabetes Mellitus, Hyperlipidemia, Thyroid Disorder History of Any Multi-Drug Resistant Organisms: None Reported Past Surgical History: Joint Replacement, Uterine Ablation Additional Past Surgical History / Comment(s): eyelid Past Anesthesia/Blood Transfusion Reactions: No Reported Reaction Past Psychological History: Anxiety Smoking Status: Former smoker Past Alcohol Use History: Daily Past Drug Use History: None Reported General Exam Limitations: no limitations General appearance: alert, in no apparent distress Head exam: Present: normocephalic, normal inspection. Absent: atraumatic (no laceration noted. 1 cm occipital scalp non bleeding abrasion ) Respiratory exam: Present: normal lung sounds bilaterally. Absent: respiratory distress, wheezes, rales, rhonchi, stridor Cardiovascular Exam: Present: regular rate, normal rhythm, normal heart sounds. Absent: systolic murmur, diastolic murmur, rubs, gallop, clicks Left Hip exam: Present: normal inspection, full ROM, pelvic stability. Absent: tenderness, swelling, abrasion, laceration, ecchymosis, deformity, crepitus, dislocation, erythema, external rotation, internal rotation, shortening Back exam: Present: normal inspection, full ROM. Absent: tenderness Neurological exam: Present: alert, oriented X3, CN II-XII intact Psychiatric exam: Present: normal affect, normal mood Skin exam: Present: warm, dry, intact, normal color. Absent: rash Course Vital Signs 03/03/22 03/03/22 10:48 12:50 Temperature 98 F Pulse Rate 65 62 Respiratory 16 16 Rate Blood Pressure 137/78 127/69 O2 Sat by Pulse 98 97 Oximetry Medical Decision Making - Medical Decision Making This is a 71-year-old female who presents with a fall. Thorough history and examination were performed. Patient is well-appearing. She is on blood thinners. Denies headache, nausea, vomiting. No scalp laceration noted. There is a 1 cm occipital scalp non bleeding abrasion. No lumbar vertebral or parave rtebral tenderness. No swelling, erythema, or ecchymosis of the left hip. CT of the brain and C-spine was obtained which shows no acute process and no evidence of cervical spine fracture. There is a scalp hematoma. Lumbar spine and left hip and AP pelvis x-ray negative for acute process. Pain controlled in the emergency department. Patient will be discharged with symptomatic treatment. Hematoma education provided. Return parameters discussed. Patient verbalizes understanding and is agreeable to this plan. Dr. Corral is my attending. Disposition Clinical Impression: Fall, Hematoma, Back pain Disposition: HOME SELF-CARE Condition: Good Instructions (If sedation given, give patient instructions): Fall Prevention for Older Adults (ED) Additional Instructions: Take medication as directed for back pain. After you run out take Tylenol or Motrin if symptoms continue. Apply lidocaine patches as instructed. Use of cold compress for the next 24-48 hours will improve hematoma on scalp. You may also use cold compress on your the back. If symptoms continue after 24-48 hours, switch to warm compresses. Keep cut on scalp clean and dry. You may shower as normal but use a gentle shampoo and avoid scrubbing. Follow-up with primary care provider in one to 2 days. Return to the emergency department if you experience new, concerning, or worsening symptoms. Prescriptions: Lidocaine 5% Patch [Lidoderm 5% Patch] 1 patch TOPICAL DAILY #7 patch Is patient prescribed a controlled substance at d/c from ED?: No Referrals: Ishaan Cazares MD [Primary Care Provider] - 1-2 days Time of Disposition: 12:02
[2022-03-03 12:52] VITALS: BP 127/69; PULSE 62
== END 2022-03-03 12:54 | disposition home or self-care (01) ==
LOC: EC 10:43
DX: T14.8XXA Other injury of unspecified body region, initial encounter (principal); M54.9 Dorsalgia, unspecified; Z87.891 Personal history of nicotine dependence; Z79.899 Other long term (current) drug therapy; Z88.2 Allergy status to sulfonamides; Z88.6 Allergy status to analgesic agent; Z88.8 Allergy status to other drugs, medicaments and biological substances; E11.9 Type 2 diabetes mellitus without complications; E78.5 Hyperlipidemia, unspecified; E07.9 Disorder of thyroid, unspecified; W19.XXXA Unspecified fall, initial encounter
CPT/HCPCS: 70450; 72110; 72125; 73502; 99284

== ENCOUNTER → 2022-05-02 | Outpatient (CLI) | payer MEDICARE ==
[2022-05-02 16:55] LABS: INR 0.9 (<1.2); Prothrombin Time 9.8 sec (9.0-12.0)
[2022-05-03 00:02] LABS: HCT 35.5 % (37.2-46.3); HGB 11.8 g/dL (12.0-15.0); MCH 31.9 pg (27.0-32.0); MCHC 33.2 g/dL (32.0-37.0); MCV 95.9 fL (80.0-97.0); Mean Platelet Volume 9.9 fL (9.5-12.2); NRBC Per 100 WBC 0 /100 WBCS (0.0-0.0); Platelet Count 220 X 10*3/uL (140-440); RDW 13.2 % (11.5-14.5); WBC 4.26 X 10*3/uL (4.50-10.00)
[2022-05-03 00:12] LABS: African American GFR (CKD) 91.8 (60.0-200.0); Albumin 4.4 g/dL (3.8-4.9); Albumin/Globulin Ratio 2.08 (1.60-3.17); Anion Gap 9.8 mmol/L (10.00-18.00); BUN/Creat Ratio 24.41 Ratio (12.00-20.00); Blood Urea Nitrogen 18.6 mg/dL (9.0-27.0); Calcium 9.4 mg/dL (8.7-10.3); Carbon Dioxide 26.7 mmol/L (20.0-27.5); Globulin 2.1 g/dL (1.6-3.3); Non-African American GFR(CKD) 79.2 (60.0-200.0); Potassium 4.3 mmol/L (3.5-5.5); Total Bilirubin 0.6 mg/dL (0.30-1.20); Total Protein 6.5 g/dL (6.2-8.2)
== END | disposition home or self-care (01) ==
LOC: LABWHC1 15:48
PROVIDERS: ATTEND Orthopaedic Surgery Adult Reconstructive Orthopaedic Surgery
DX: Z01.812 Encounter for preprocedural laboratory examination (principal); Z13.1 Encounter for screening for diabetes mellitus; M17.2 Bilateral post-traumatic osteoarthritis of knee
CPT/HCPCS: 36415; 80053; 85027; 85610; 85730; 87070

== ENCOUNTER → 2022-06-18 | Outpatient (CLI) | payer MEDICARE ==
--- NOTE | 2022-06-19 07:37 | MM ---
Reason for Exam: Screening (asymptomatic). Last screening mammogram was performed 12 month(s) ago. Patient History: Menarche at age 15. First Full-Term at age 35. Late child-bearing (after 30). Postmenopausal. Estrogen for 6 months. Risk Values: Danielle 5 year model risk: 2.2%. NCI Lifetime model risk: 6.0%. Prior Study Comparison: 05/08/2016 Bilateral Screening Mammogram, [facility]. 06/17/2017 Bilateral Screening Mammogram, [facility]. 06/25/2018 Bilateral Screening Mammogram, [facility]. 01/24/2020 Bilateral Screening Mammogram, [facility]. 06/12/2021 Bilateral Screening Mammogram, [facility]. Tissue Density: The breast tissue is heterogeneously dense. This may lower the sensitivity of mammography. Findings: Analyzed By CAD. There is no suspicious group of microcalcifications or new suspicious mass in either breast. Overall Assessment: Benign, BI-RAD 2 Management: Screening Mammogram of both breasts in 1 year. A clinical breast exam by your physician is recommended on an annual basis and results should be correlated with mammographic findings. Electronically signed and approved by: Eladio Freeman M.D. Radiologis
== END | disposition home or self-care (01) ==
LOC: RADMAMWWP 07:55
PROVIDERS: ATTEND Obstetrics & Gynecology
DX: Z12.31 Encounter for screening mammogram for malignant neoplasm of breast (principal); Z78.0 Asymptomatic menopausal state
CPT/HCPCS: 77063; 77067

== ENCOUNTER → 2023-06-16 | Outpatient (CLI) | payer MEDICARE ==
[2023-06-16 15:37] LABS: Basophils # (A) 0.03 X 10*3/uL (0.00-0.10); Eosinophils # (A) 0.07 X 10*3/uL (0.04-0.35); Eosinophils % (A) 2.4 %; HCT 36.2 % (37.2-46.3); Lymphocytes # (A) 0.81 X 10*3/uL (0.90-5.00); Lymphocytes % (A) 28.3 %; MCH 30.8 pg (27.0-32.0); MCHC 33.1 g/dL (32.0-37.0); MCV 93.1 FL (80.0-97.0); Mean Platelet Volume 8.9 FL (9.5-12.2); Monocytes # (A) 0.29 X 10*3/uL (0.20-1.00); Monocytes % (A) 10.1 %; NRBC Per 100 WBC 0 X 10*3/uL (0.00-0.01); Neutrophils # (A) 1.64 X 10*3/uL (1.80-7.70); Neutrophils % (A) 57.5 %; Platelet Count 200 X 10*3/uL (140-440); RBC 3.89 X 10*6/uL (4.10-5.20); RDW 13.7 % (11.5-14.5); WBC 2.86 X 10*3/uL (4.50-10.00)
[2023-06-16 15:57] LABS: ALT 17 U/L (8-44); AST 19 U/L (13-35); Albumin 4.6 g/dL (3.8-4.9); Alkaline Phosphatase 76 U/L (41-126); BUN/Creat Ratio 14.25 Ratio (12.00-20.00); Blood Urea Nitrogen 11.4 mg/dL (9.0-27.0); Calcium 9.8 mg/dL (8.7-10.3); Carbon Dioxide 27.2 mmol/L (21.6-31.8); Chloride 104 mmol/L (96-109); Globulin 2.3 g/dL (1.6-3.3); Glucose 123 mg/dL (70-110); Potassium 4.6 mmol/L (3.5-5.5); Sodium 142 mmol/L (135-145); Total Bilirubin 0.8 mg/dL (0.3-1.2); Total Protein 6.9 g/dL (6.2-8.2)
== END | disposition home or self-care (01) ==
LOC: LABWHC1 09:12
PROVIDERS: ATTEND Physician Assistant
DX: Z01.89 Encounter for other specified special examinations (principal); Z13.1 Encounter for screening for diabetes mellitus; M25.562 Pain in left knee
CPT/HCPCS: 36415; 80053; 83036; 85025; 87070

== ENCOUNTER → 2023-06-20 | Outpatient (CLI) | payer MEDICARE ==
--- NOTE | 2023-06-23 07:46 | MM ---
Reason for Exam: Screening (asymptomatic). Last screening mammogram was performed 12 month(s) ago. Patient History: Menarche at age 15. First Full-Term at age 35. Late child-bearing (after 30). Postmenopausal. Estrogen for 6 months. Risk Values: Danielle 5 year model risk: 2.2%. NCI Lifetime model risk: 5.7%. Prior Study Comparison: 01/24/2020 Bilateral Screening Mammogram, [facility]. 06/12/2021 Bilateral Screening Mammogram, [facility]. 06/18/2022 Bilateral MG 3D screening mammo w/cad, [facility]. Tissue Density: The breast tissue is heterogeneously dense. This may lower the sensitivity of mammography. Findings: Analyzed By CAD. There is no suspicious group of microcalcifications or new suspicious mass. Overall Assessment: Negative, BI-RAD 1 Management: Screening Mammogram of both breasts in [address] [facility] will attempt to contact patient to return for supplemental views and ultrasound if indicated. Patient should continue monthly self-breast exams. A clinical breast exam by your physician is recommended on an annual basis. This exam should not preclude additional follow-up of suspicious palpable abnormalities. Note on Danielle scores and lifetime risk: 1. A Danielle score greater than 3% is considered moderate risk. If this is the case, consider specialist referral to assess eligibility for a risk reducing agent. 2. If overall lifetime risk for the development of breast cancer is 20% or higher, the patient may qualify for future screening with alternating mammogram and breast MRI. Electronically signed and approved by: Palmer Fuentes DO
== END | disposition home or self-care (01) ==
LOC: RADMAMWWP 11:02
PROVIDERS: ATTEND Obstetrics & Gynecology
DX: Z12.31 Encounter for screening mammogram for malignant neoplasm of breast (principal); Z78.0 Asymptomatic menopausal state
CPT/HCPCS: 77063; 77067

== ENCOUNTER → 2024-06-21 | Outpatient (CLI) | payer MEDICARE ==
--- NOTE | 2024-06-21 15:48 | BD ---
EXAMINATION TYPE: Axial Bone Density DATE OF EXAM: 06/21/2024 CLINICAL HISTORY: 74 years old Female. ICD-10 CODE: M810 AGE RELATED OSTEO , Additional History: Height: 68.5 in Weight: 261 lbs FRAX RISK QUESTIONS: History of Fracture in Adulthood: rt foot fx age 72 RISK FACTORS HISTORY OF: Surgery to Hip(right): age 68 MEDICATIONS: Thyroid Medications: yes Which medication: Levothyroxine How Lon+ years EXAM MEASUREMENTS: Bone mineral densitometry was performed using the [employer] System. Bone mineral density as measured about the Lumbar spine is: ----- L1-L4(G/cm2): 1.366 T Score Values are as follows: ----- L1: 1.0 ----- L2: 0.4 ----- L3: 2.2 ----- L4: 2.2 ----- L1-L4: 1.5 Z Score Values are as follows: ----- L1: 1.6 ----- L2: 0.9 ----- L3: 2.7 ----- L4: 2.7 ----- L1-L4: 2.1 Bone mineral density has: Decreased -13.5% since study of: 03/01/2020 Bone mineral density about the L hip (g/cm2): 1.245 T Score values are as follows: -----L Neck: 0.6 -----L Total: 1.9 Z Score values are as follows: -----L Neck: 1.7 -----L Total: 2.1 Bone mineral density has: Decreased -3.0% since study of: 03/01/2020 FRAX%s: The graph provided illustrates a 5.8% chance for a major osteoporotic fx and a 0.3% chance fo r the hips probability for fx in 10 years time. IMPRESSION: Normal (Values between +1 and -1 indicate normal bone mass). Consider repeating this study in 5 year s or sooner if there is some new clinical indication. NOTE: T-SCORE=SD OF THE YOUNG ADULT MEAN. [facility], , 06/21/2024 3:46 PM
--- NOTE | 2024-06-22 19:00 | MM ---
Reason for Exam: Screening (asymptomatic). Last screening mammogram was performed 12 month(s) ago. Patient History: Menarche at age 15. First Full-Term at age 35. Late child-bearing (after 30). Postmenopausal. Estrogen for 6 months. Risk Values: Danielle 5 year model risk: 2.2%. NCI Lifetime model risk: 5.4%. Prior Study Comparison: 06/12/2021 Bilateral Screening Mammogram, [facility]. 06/18/2022 Bilateral MG 3D screening mammo w/cad, [facility]. 06/20/2023 Bilateral MG 3D screening mammo w/cad, [facility]. Tissue Density: The breasts are heterogeneously dense, which may obscure small masses. Findings: Analyzed By CAD. Medial asymmetric densities on both sides are unchanged. There is no suspicious group of microcalcifications or new suspicious mass in either breast. Overall Assessment: Benign, BI-RAD 2 Management: Screening Mammogram of both breasts in 1 year. . Patient should continue monthly self-breast exams. A clinical breast exam by your physician is recommended on an annual basis. This exam should not preclude additional follow-up of suspicious palpable abnormalities. Note on Danielle scores and lifetime risk: 1. A Danielle score greater than 3% is considered moderate risk. If this is the case, consider specialist referral to assess eligibility for a risk reducing agent. 2. If overall lifetime risk for the development of breast cancer is 20% or higher, the patient may qualify for future screening with alternating mammogram and breast MRI. [facility], , 06/22/2024 6:57 PM. Electronically signed and approved by: Ric Horner M.D. Radiologist
== END | disposition home or self-care (01) ==
LOC: RADBDWWP 09:02
PROVIDERS: ATTEND Internal Medicine
DX: Z12.31 Encounter for screening mammogram for malignant neoplasm of breast (principal); Z78.0 Asymptomatic menopausal state; R92.333 Mammographic heterogeneous density, bilateral breasts
CPT/HCPCS: 77063; 77067; 77080